=== PATIENT | male | born 1985 | race Caucasian/White ===

== ENCOUNTER 2016-11-14 01:24 | Emergency (ER) | payer SELFPAY ==
[2016-11-14 01:53] VITALS: BP 105/55
[2016-11-14] MEDS ORDERED: NORMAL SALINE 1000 ML 1,000 ML IV ONE (02:41)
[2016-11-14] MEDS ORDERED: ONDANSETRON HCL INJ/PF 4 MG/2 ML SDV IV ONE (02:41)
--- NOTE | 2016-11-14 02:43 | ER Document Report ---
ED General - General Chief Complaint: Abdominal Distention Stated Complaint: ABDOMINAL PAIN Time Seen by Provider: 11/14/16 02:35 Notes: Patient is a 31-year-old male presents with complaint of problems with his umbilical hernia. He had a repair in 2012 with mesh. He says since then his hernia has busted open. He says for over a month his hernia will bulge out when he stands up. He says for last several days he has been having difficulty having normal bowel movements and also has been vomiting some. He also feels that he has some gaseous distention of his abdomen. No fevers. No blood in his emesis. He says he is having bowel movements but they are very skinny and small. He has no other complaints at this time. He has not seen a doctor about this. TRAVEL OUTSIDE OF THE [place] IN LAST 30 DAYS: No - Related Data Allergies/Adverse Reactions: Sulfa (Sulfonamide Antibiotics) Allergy (Verified 01/24/12 02:21) Past Medical History - Social History Smoking Status: Unknown if Ever Smoked Frequency of alcohol use: Occasional Drug Abuse: None Family History: CAD, CVA, DM, Hyperlipidemia, Hypertension, Thyroid Disfunction Patient has suicidal ideation: No Patient has homicidal ideation: No - Past Medical History Cardiac Medical History: Reports: Hx Hypercholesterolemia, Hx Hypertension Denies: Hx Coronary Artery Disease, Hx Heart Attack Pulmonary Medical History: Reports: Hx Bronchitis - HAS AN ALBUTEROL INHALER, STATES HIS DOCTOR USED TO TRY TO TREAT WITH SYMBICORT FOR URI ASSOCIATED EPISODIC WHEEZING. Endocrine Medical History: Reports: Hx Diabetes Mellitus Type 2 Renal/ Medical History: Denies: Hx Peritoneal Dialysis GI Medical History: Reports: Hx Gastroesophageal Reflux Disease Musculoskeltal Medical History: Reports Hx Musculoskeletal Trauma Psychiatric Medical History: Reports: Hx Anxiety, Hx Depression - Anxiety Traumatic Medical History: Reports: Hx Pneumothorax, Hx Traumatic Brain Injury Past Surgical History: Reports: Hx Abdominal Surgery - Hernia, Hx Appendectomy, Hx Neurologic Surgery - Immunizations Hx Diphtheria, Pertussis, Tetanus Vaccination: Yes - unk Review of Systems - Review of Systems Notes: My Normal Review Basic REVIEW OF SYSTEMS: CONSTITUTIONAL : Denies fever, chills, or sweats. Denies recent illness. CARDIOVASCULAR: Denies chest pain. RESPIRATORY: Denies cough, cold, or chest congestion. Denies shortness of breath, difficulty breathing, or wheezing. GASTROINTESTINAL: Some abdominal pain. Some vomiting. MUSCULOSKELETAL: Denies neck or back pain or joint pain or swelling. SKIN: Denies rash or skin lesions. NEUROLOGICAL: Denies altered mental status or loss of consciousness. Denies headache. Denies weakness or paralysis or loss of use of either side. Denies problems with gait or speech. Denies sensory or motor loss. ALL OTHER SYSTEMS REVIEWED AND NEGATIVE. Physical Exam - Vital signs Vitals: Temp Pulse Resp BP Pulse Ox 99.0 F 113 H 18 105/55 L 95 11/14/16 01:34 11/14/16 01:11/14/16 01:11/14/16 01:34 11/14/16 01:34 - Notes Notes: General Appearance: Well nourished, alert, cooperative, no acute distress, no obvious discomfort. Well-appearing. Vitals: reviewed, See vital signs table. Head: no swelling or tenderness to the head Eyes: PERRL, EOMI, Conjuctiva clear Mouth: No decreasd moisture Lungs: No wheezing, No rales, No rhonci, No accessory muscle use, good air exchange bilaterally. Heart: Normal rate, Regular rythm, No murmur, no rub Abdomen: Normal BS, soft, No rigidity, mild pain to palpation periumbilical area. I do not feel hernia when the patient lies flat. When patient stands up I am able to fill the hernia. The hernia does feel soft but is difficult to tell if it is fully reducible. Extremities: strength 5/5 in all extremities, good pulses in all extremities, no swelling or tenderness in the extremities, no edema. Skin: warm, dry, appropriate color, no rash Neuro: speech clear, oriented x 3, normal affect, responds appropriately to questions. Course - Re-evaluation Re-evalutation: 11/14/16 05:40 A few hours ago and to reevaluate the patient and he was gone. I found the charge nurse and ask with the patient was. She said that he had eloped a while ago and never returned. - Vital Signs Vital signs: Temp Pulse Resp BP Pulse Ox 99.0 F 113 H 18 105/55 L 95 11/14/16 01:34 11/14/16 01:34 11/14/16 01:11/14/16 01:11/14/16 01:34 Discharge - Discharge Disposition: ELOPED
== END 2016-11-14 03:05 | disposition left against medical advice (07) ==
LOC: ER 01:24
DX: R10.9 Unspecified abdominal pain (principal); E78.00 Pure hypercholesterolemia, unspecified; I10 Essential (primary) hypertension; E11.9 Type 2 diabetes mellitus without complications; Z86.73 Personal history of transient ischemic attack (TIA), and cerebral infarction without residual deficits; Z88.2 Allergy status to sulfonamides
CPT/HCPCS: 99281

== ENCOUNTER 2019-03-19 00:35 | Emergency (ER) | payer SELFPAY ==
[2019-03-19 01:16] LABS: APPEARANCE,URINE CLEAR; BILIRUBIN,URINE NEGATIVE (NEGATIVE); COLOR,URINE COLORLESS; GLUCOSE, URINE >=500 mg/dL (NEGATIVE); KETONES,URINE NEGATIVE (NEGATIVE); LEUKOCYTE ESTERASE,URINE NEGATIVE (NEGATIVE); NITRITE,URINE NEGATIVE (NEGATIVE); PROTEIN,URINE NEGATIVE (NEGATIVE); URINE SPECIFIC GRAVITY 1.005; UROBILINOGEN,URINE NEGATIVE mg/dL (<2.0)
--- NOTE | 2019-03-19 01:36 | ER Document Report ---
ED GI/ - General Chief Complaint: Penile Injury Stated Complaint: BURN ON PENIS Time Seen by Provider: 03/19/19 01:36 Primary Care Provider: KRISTINE HERNANDES MD [Primary Care Provider] - Follow up as needed Mode of Arrival: Ambulatory Information source: Patient Notes: Patient reports that he is noted burning in his penis. States that he masturbates and has denuded the skin off of his penis. He is put antibiotic ointment, powder, moisturizing cream etc. to try to keep the area from drying and cracking and given more pain. Patient is a circumcised male however because of obesity there is skinfold over the penile shaft. Patient also reports he had sexual intercourse about a week ago and he is not concerned as was about sexually transmitted disease but he noted that there was a swelling on the shaft of his penis and he is worried about it. Denies any dysuria or urinary symptoms. Denies fever chills nausea vomiting. Patient has been taking prednisone in an attempt to improve the rash however for the last 2 weeks he seems to be getting worse. He denies diabetes but he does admit that he does have sometimes elevated glucose level. Patient has been washing thoroughly his genitalia with soapy water during showers and trying to keep area dry whenever possible. TRAVEL OUTSIDE OF THE [place] IN LAST 30 DAYS: No - Related Data Allergies/Adverse Reactions: Sulfa (Sulfonamide Antibiotics) Allergy (Verified 01/24/12 02:21) Home Medications: Ativan. Lisinopril Past Medical History - Social History Smoking Status: Current Some Day Smoker Frequency of alcohol use: Social Drug Abuse: None Lives with: Alone Family History: CAD, CVA, DM, Hyperlipidemia, Hypertension, Thyroid Disfunction Patient has suicidal ideation: No Patient has homicidal ideation: No - Past Medical History Cardiac Medical History: Reports: Hx Hypercholesterolemia, Hx Hypertension Denies: Hx Coronary Artery Disease, Hx Heart Attack Pulmonary Medical History: Reports: Hx Bronchitis - HAS AN ALBUTEROL INHALER, STATES HIS DOCTOR USED TO TRY TO TREAT WITH SYMBICORT FOR URI ASSOCIATED EPISODIC WHEEZING. EENT Medical History: Reports: Other - Wears glasses Endocrine Medical History: Reports: Hx Diabetes Mellitus Type 2 Renal/ Medical History: Denies: Hx Peritoneal Dialysis GI Medical History: Reports: Hx Gastroesophageal Reflux Disease Musculoskeletal Medical History: Reports Hx Musculoskeletal Trauma Psychiatric Medical History: Reports: Hx Anxiety, Hx Depression - Anxiety Traumatic Medical History: Reports: Hx Pneumothorax, Hx Traumatic Brain Injury Past Surgical History: Reports: Hx Abdominal Surgery - Hernia, Hx Appendectomy, Hx Neurologic Surgery - Immunizations Hx Diphtheria, Pertussis, Tetanus Vaccination: Yes - unk Review of Systems - Review of Systems Constitutional: No symptoms reported EENT: Other - Is glasses Cardiovascular: No symptoms reported Respiratory: No symptoms reported Gastrointestinal: No symptoms reported Genitourinary: Burning Male Genitourinary: Other - Skin rash on penis Musculoskeletal: No symptoms reported Skin: Rash Hematologic/Lymphatic: No symptoms reported Neurological/Psychological: No symptoms reported -: Yes All other systems reviewed and negative Physical Exam - Vital signs Vitals: Temp Pulse Resp BP Pulse Ox 97.8 F 119 H 20 162/88 H 97 03/19/19 00:42 03/19/19 00:42 03/19/19 00:42 03/19/19 00:42 03/19/19 00:42 Interpretation: Normal - Notes Notes: Obese - General General appearance: Appears well, Alert - HEENT Head: Normocephalic, Atraumatic Eyes: Normal Pupils: PERRL - Respiratory Respiratory status: No respiratory distress Chest status: Nontender Breath sounds: Normal Chest palpation: Normal - Cardiovascular Rhythm: Regular Heart sounds: Normal auscultation Murmur: No - Abdominal Inspection: Normal Distension: No distension Bowel sounds: Normal Tenderness: Nontender Organomegaly: No organomegaly - Genitourinary Scrotum: Normal Notes: Reddened swollen skin on the penile shaft. No open wounds draining any blood at this time. Noted firm 3 cm x 0.5 cm indurated area subdermal on the shaft of the penis. No active bleeding. Area is reddened and swollen with dry scaly rash. (Patient has put some type of powder or on this skin area.) Inasmuch as patient has been circumcised years ago patient is obesity has created an enveloped layer skin on the penile shaft which covers nearly the head of the penis which can affect creates the same effect as a uncircumcised male. - Back Back: Normal, Nontender - Extremities General upper extremity: Normal inspection, Nontender, Normal color, Normal ROM, Normal temperature General lower extremity: Normal inspection, Nontender, Normal color, Normal ROM, Normal temperature, Normal weight bearing. No: Suzanna's sign - Neurological Neuro grossly intact: Yes Cognition: Normal Orientation: AAOx4 Gale Coma Scale Eye Opening: Spontaneous Gale Coma Scale Verbal: Oriented [place] Coma Scale Motor: Obeys Commands Gale Coma Scale Total: 15 Speech: Normal Motor strength normal: LUE, RUE, LLE, RLE Sensory: Normal - Psychological Associated symptoms: Normal affect, Normal mood - Skin Skin Temperature: Warm Skin Moisture: Dry Skin Color: Normal Course - Re-evaluation Re-evalutation: 03/19/19 03:12 Vital signs stable hemodynamically stable. - Vital Signs Vital signs: Temp Pulse Resp BP Pulse Ox 97.8 F 119 H 20 162/88 H 97 03/19/19 00:42 03/19/19 00:42 03/19/19 00:42 03/19/19 00:42 03/19/19 00:42 - Laboratory Laboratory results interpreted by me: 03/19/19 03/19/19 00:50 02:47 POC Glucose 277 H Urine Glucose (UA) >=500 H Urine Blood SMALL H 03/19/19 03:10 Random Accu-Chek bedside 277 Discharge - Discharge Clinical Impression: Candidal balanitis Hyperglycemia due to type 2 diabetes mellitus Qualifiers: Diabetes mellitus longterm insulin use: without longterm use Qualified Code(s): E11.65 - Type 2 diabetes mellitus with hyperglycemia Disposition: HOME, SELF-CARE Additional Instructions: Diabetes You have an abnormally high blood sugar, suspicious for diabetes. Not all high blood sugar requires long-term treatment. High blood sugar can be due to medications, , or the stress of illness. (These cases are "borderline diabetes.") If the doctor feels your high blood sugar might get better with time, you may not require treatment now. You will be scheduled for further evaluation. It's very important that you follow through. Uncontrolled high blood sugar leads to early heart disease, strokes, nerve damage, eye damage, and kidney damage. All diabetics should follow a diet designed to control the blood sugar. Overweight diabetics should exercise regularly and lose weight. If this is not sufficient to control the blood sugar, pills or insulin shots are necessary. Younger people who develop diabetes almost always require insulin daily. Home testing of blood sugars or urine sugar is required. Diabetic teaching is available to help you figure insulin doses and monitor the blood sugar. Call the physician if there is faintness, excess sleepiness, or very rapid breathing. If hypoglycemia (LOW blood sugar) develops, symptoms are shakiness, weakness, sweating, and confusion. In this case, you should eat or drink something with sugar at once. Balanitis Balanitis is inflammation of the foreskin and glans of the penis. The glans may be tender, red, and covered with discharge. It's caused by growth of bacteria or yeast. The problem is common in diabetic men. Retract the foreskin and wash the area with mild soap (such as Phisoderm) twice daily. Allow to dry a few minutes. Apply the antifungal or antibiotic ointment we've prescribed. It usually takes about a week to heal. If there are frequent or severe episodes, circumcision will prevent further problems. Return if the pain or inflammation are worsening, if you have fever or chills, or if you're unable to urinate. Recommend you do not continue using prednisone. Your urine today shows glucose urea with glucose spilling in there in your urine which indicates that there is elevated glucose in your blood serum as well. Yeast infections floors when sugar is present Consider taking ibuprofen [id number] 800 mg every 8 hours with meals as needed for pain and swelling. Trying to keep genital area clean and dry and apply as needed nystatin cream to cover skin that is denuded. Additionally you were placed on Diflucan which is an antifungal drug which also improved the rash that she currently have. Recommend avoid sexual activity until rash is improved. Recommend you follow-up with your primary care physician regarding your elevated blood sugar. Perhaps you may get started back on your metformin. Prescriptions: Fluconazole [Diflucan] 100 mg PO DAILY #10 tablet Nystatin [Mycostatin Cream 15 gm] 1 applic TP BID 14 Days #30 gm Referrals: KRISTINE HERNANDES MD [Primary Care Provider] - Follow up as needed
[2019-03-19 03:59] VITALS: BP 149/88
== END 2019-03-19 03:35 | disposition home or self-care (01) ==
LOC: ER 00:35
DX: B37.42 Candidal balanitis (principal); E11.65 Type 2 diabetes mellitus with hyperglycemia; E66.9 Obesity, unspecified; F17.200 Nicotine dependence, unspecified, uncomplicated; I10 Essential (primary) hypertension; F41.9 Anxiety disorder, unspecified; Z79.899 Other long term (current) drug therapy; Z88.2 Allergy status to sulfonamides
CPT/HCPCS: 81001; 82962; 99283

== ENCOUNTER 2019-10-22 00:02 | Emergency (ER) | payer SELFPAY ==
[2019-10-22 00:22] VITALS: BP 139/72
[2019-10-22] MEDS ORDERED: NORMAL SALINE 1000 ML 1,000 ML IV ONE (00:55)
[2019-10-22 01:09] LABS: ABSOLUTE BASOPHILS # (AUTO) 0.1 10^3/uL (0.0-0.2); ABSOLUTE EOSINOPHILS # (AUTO) 0.1 10^3/uL (0.0-0.6); ABSOLUTE LYMPHOCYTES (AUTO) 2.2 10^3/uL (0.5-4.7); ABSOLUTE MONOCYTES (AUTO) 0.6 10^3/uL (0.1-1.4); ABSOLUTE NEUT (AUTO) 3.8 10^3/uL (1.7-8.2); BASOPHILS % (AUTO) 1.1 % (0-2); EOSINOPHILS % (AUTO) 0.8 % (0-6); HEMATOCRIT 45.1 % (37.9-51.0); HEMOGLOBIN 15.9 g/dL (13.5-17.0); LYMPHOCYTES % (AUTO) 32.9 % (13-45); MEAN CORPUSCULAR HEMOGLOBIN 31.7 pg (27.0-33.4); MEAN CORPUSCULAR HGB CONC 35.2 g/dL (32.0-36.0); MEAN CORPUSCULAR VOLUME 90 fl (80-97); MONOCYTES % (AUTO) 9.5 % (3-13); PLATELET COUNT 235 10^3/uL (150-450); RED BLOOD COUNT 5.01 10^6/uL (4.35-5.55); SEGMENTED NEUTROPHILS % (AUTO) 55.7 % (42-78); TOTAL CELLS COUNTED % (AUTO) 100 %; WHITE BLOOD COUNT 6.8 10^3/uL (4.0-10.5)
[2019-10-22 01:14] LABS: APPEARANCE,URINE CLEAR; BILIRUBIN,URINE NEGATIVE (NEGATIVE); COLOR,URINE STRAW; GLUCOSE, URINE >=500 mg/dL (NEGATIVE); KETONES,URINE NEGATIVE (NEGATIVE); LEUKOCYTE ESTERASE,URINE NEGATIVE (NEGATIVE); NITRITE,URINE NEGATIVE (NEGATIVE); PROTEIN,URINE NEGATIVE (NEGATIVE); URINE SPECIFIC GRAVITY 1.008; UROBILINOGEN,URINE NEGATIVE mg/dL (<2.0)
[2019-10-22 01:17] LABS: ALBUMIN 4.9 g/dL (3.5-5.0); ALKALINE PHOSPHATASE 80 U/L (38-126); ASPARTATE AMINO TRANSFERASE 45 U/L (17-59); BILIRUBIN,DIRECT 0.2 mg/dL (0.0-0.4); BILIRUBIN,TOTAL 0.7 mg/dL (0.2-1.3); BLOOD UREA NITROGEN 13 mg/dL (7-20); CALCIUM 9.5 mg/dL (8.4-10.2); GLUCOSE 369 mg/dL (75-110); POTASSIUM 4.2 mmol/L (3.6-5.0); TOTAL PROTEIN 7.5 g/dL (6.3-8.2)
[2019-10-22 01:22] LABS: CARBON DIOXIDE 20 mmol/L (22-30); CHLORIDE 92 mmol/L (98-107)
[2019-10-22 01:33] LABS: ANION GAP 20 (5-19)
== END 2019-10-22 01:23 | disposition left against medical advice (07) ==
LOC: ER 00:02
DX: Z53.21 Procedure and treatment not carried out due to patient leaving prior to being seen by health care provider (principal); R50.9 Fever, unspecified
CPT/HCPCS: 36415; 80053; 81001; 82962; 85025; J7030